=== PATIENT | male | born 1985 | race Caucasian/White ===

== ENCOUNTER → 2017-08-06 | Outpatient (CLI) | payer BC ==
[~2017-08-06] MED LIST: OPTIRAY 320 IV PRN
--- NOTE | 2017-08-06 14:35 | DIAGNOSTIC IMAGING REPORT ---
CT SCAN OF THE ABDOMEN AND PELVIS WITH IV CONTRAST CLINICAL HISTORY: Night sweats. Anemia. COMPARISON STUDY: No priors. TECHNIQUE: Following the IV administration of 120 cc of Optiray 320, CT scan of the abdomen and pelvis is performed from the lung bases to the proximal femora. Images are reviewed in the axial, sagittal, and coronal planes. IV contrast was administered without complication. A dose lowering technique was utilized adhering to the principles of ALARA. FINDINGS: Lung bases: The heart is normal in size and without pericardial effusion. Tiny calcified granulomas are noted at the lung bases. The lung bases are otherwise clear. There is a tiny hiatal hernia. Liver: The contrast-enhanced liver is enlarged, measuring 23.5 cm in length. The liver demonstrates diffusely diminished attenuation consistent with hepatic steatosis. There is no intrahepatic biliary ductal dilatation. The hepatic veins and portal veins are patent. Gallbladder: Surgically absent noting clips in the gallbladder fossa. Spleen: The spleen is mildly enlarged, measuring 14.2 cm in length. Pancreas: Unremarkable. Adrenal glands: Unremarkable. Kidneys: The contrast enhanced kidneys are normal in size and without hydronephrosis. The kidneys enhance symmetrically. There is a 2.5 cm exophytic lesion arising from the interpolar left kidney on image #221. This does not meet CT criteria for a simple cyst. A subcentimeter cortical hypodensity in the upper pole the right kidney is too small for definitive characterization. Abdominal vasculature: The abdominal aorta is normal in course and caliber. Bowel: The small bowel and colon are normal in course and caliber. The appendix is well-visualized and normal. Peritoneum: There is no intraperitoneal free air or abdominal ascites. Lymphadenopathy: None. Pelvic viscera: The bladder, prostate, and seminal vesicles are normal as visualized. Skeletal structures: No lytic or blastic lesions are seen. IMPRESSION: 1. There is a 2.5 cm exophytic lesion arising from the interpolar left kidney which does not meet CT criteria for a simple cyst. Although this could represent a complex cyst, renal neoplasm is the diagnosis of exclusion. Correlation with a contrast-enhanced abdominal MRI is recommended for further assessment. 2. No adenopathy is seen in the abdomen or pelvis. 3. Hepatomegaly and hepatic steatosis. 4. Mild splenomegaly. 5. Additional findings as above. Electronically signed by: Toño Chiang M.D. 08/06/2017 2:34 PM Dictated Date/Time: 08/06/2017 2:29 PM
--- NOTE | 2017-08-06 14:39 | DIAGNOSTIC IMAGING REPORT ---
CT OF THE CHEST WITH IV CONTRAST CLINICAL HISTORY: Night sweats. Anemia. COMPARISON STUDY: No previous studies for comparison. TECHNIQUE: Following IV administration of 120 mL of Optiray-320, helical axial images of the chest were obtained. Sagittal and coronal reconstructions were viewed as well as maximal intensity projections on an independent 3-D workstation. A dose lowering technique was utilized adhering to the principles of ALARA. CT DOSE: 1852.95 mGycm FINDINGS: No enlarged axillary, mediastinal or hilar lymph nodes are present. The size of the heart is normal. There is no pericardial effusion. Central airways are patent. There is no consolidation to suggest pneumonia. There is no cavitation. There are multiple small calcified and noncalcified pulmonary nodules. The largest noncalcified nodule is a 4 mm right lower lobe nodule shown on image 180 [id number]. There is a 3 mm left lower lobe nodule on image 215. A few additional tiny noncalcified pulmonary nodules are present. No suspicious osseous lesions are present. The abdomen and pelvis will be reported separately. IMPRESSION: 1. No thoracic lymphadenopathy. 2. Multiple small noncalcified and calcified pulmonary nodules. The calcified nodules are benign. The noncalcified nodules are likely benign but remain indeterminate. These can be followed according to the attached recommendations. Please refer to below summary of Fleischner criteria recommendations for follow-up of incidental CT nodules (Dedrick Cam, Guidelines for management of small pulmonary nodules detected on CT scans: A statement from the Fleischner Society, Radiology 237: [phone].) SOLID NODULES Multiple nodules size: <6 mm * low risk patients: no routine follow-up * high risk patients: optional CT at 12 months Multiple nodules size: 6-8 mm * low risk patients: follow-up at 3-6 months, then consider further follow-up at 18-24 months * high risk patients: follow-up at 3-6 months, then at 18-24 months if no change Multiple nodules size: >8 mm * low risk patients: follow-up at 3-6 months, then consider further follow-up at 18-24 months * high risk patients: follow-up at 3-6 months, then at 18-24 months if no change Electronically signed by: Elvin Kim M.D. 08/06/2017 2:38 PM Dictated Date/Time: 08/06/2017 2:29 PM
== END | disposition home or self-care (01) ==
LOC: C.CTS 13:32
PROVIDERS: ATTEND Internal Medicine Hematology & Oncology
DX: R61 Generalized hyperhidrosis (principal); R16.0 Hepatomegaly, not elsewhere classified; K76.0 Fatty (change of) liver, not elsewhere classified; N28.9 Disorder of kidney and ureter, unspecified; R91.8 Other nonspecific abnormal finding of lung field

== ENCOUNTER → 2017-08-19 | Outpatient (CLI) | payer BC ==
[~2017-08-19] MED LIST changes: +GADAVIST IV PRN; -OPTIRAY 320 IV PRN
--- NOTE | 2017-08-20 13:50 | DIAGNOSTIC IMAGING REPORT ---
MRI OF THE ABDOMEN WITH AND WITHOUT CONTRAST RENAL PROTOCOL CLINICAL HISTORY: Renal lesion. COMPARISON STUDY: CT of the abdomen and pelvis August 06, 2017. TECHNIQUE: Utilizing a 1.5 Baylee magnet and dedicated coil, multiplanar, multiecho imaging of the abdomen was performed pre and postcontrast administration. Post contrast imaging was performed utilizing dynamic enhancement. Injection of 15 cc of Gadavist IV was uneventful. FINDINGS: Note is made of a 2.5 cm T1 hyperintense, T2 hypointense lesion which arises from the midpole of the left kidney which corresponds to the lesion shown on CT of August 06, 2017. This demonstrates no enhancement on the postcontrast images and therefore represents a proteinaceous/hemorrhagic cyst. No enhancing renal lesions are present. There is a 1 cm cyst within the upper pole the left kidney. No hydronephrosis. Loss of signal within the liver on out of phase sequence represents fatty infiltration. The liver is mildly enlarged. The adrenal glands and pancreas are normal. There is no biliary or pancreatic ductal dilatation. There is no abdominal or pelvic lymphadenopathy. IMPRESSION: 1. 2.5 cm nonenhancing left renal lesion which corresponds to the lesion shown on CT of August 06, 2017. The lack of enhancement and signal characteristics indicate a proteinaceous/hemorrhagic cyst. This is benign. No enhancing renal lesions. 2. Fatty infiltration of the liver. Electronically signed by: Elvin Kim M.D. 08/20/2017 1:48 PM Dictated Date/Time: 08/19/2017 5:47 PM
== END | disposition home or self-care (01) ==
LOC: C.MRI 16:02
PROVIDERS: ATTEND Family Medicine
DX: N28.9 Disorder of kidney and ureter, unspecified (principal); K76.0 Fatty (change of) liver, not elsewhere classified